=== PATIENT | male | born 2000 | race Caucasian/White ===

== ENCOUNTER 2021-05-06 23:46 | Emergency (ER) | payer OTHER, BC, SELFPAY ==
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
[2021-05-06 23:49] VITALS: BP 126/76; PULSE 65; RESP 18; TEMP 36.2; O2SAT 98
[2021-05-07 00:04] VITALS: BP 123/78; PULSE 69; RESP 18; TEMP 36.6; O2SAT 99
[2021-05-07 00:41] VITALS: BP 131/76; PULSE 64; RESP 16; O2SAT 99
[2021-05-07] MEDS: IBUPROFEN 400 MG TABLET 800 MG PO (00:42)
[2021-05-07] MEDS: CYCLOBENZAPRINE HCL 10 MG TABLET PO (00:43)
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
[2021-05-07 02:16] VITALS: BP 116/74; PULSE 56; RESP 18; O2SAT 98
== END 2021-05-07 02:18 | disposition home or self-care (01) ==
PROVIDERS: Emergency Provider Emergency Medicine
DX: S39.012A Strain of muscle, fascia and tendon of lower back, initial encounter (principal); S16.1XXA Strain of muscle, fascia and tendon at neck level, initial encounter; V49.40XA Driver injured in collision with unspecified motor vehicles in traffic accident, initial encounter
CPT/HCPCS: 72131; 99284; A9270